=== PATIENT | female | born 1955 | race Caucasian/White ===

== ENCOUNTER 2016-10-28 06:05 | Day surgery (SDC) | payer OTHER ==
[2016-10-28] MEDS ORDERED: fentaNYL 100 MCG/2 ML SDV ONE (06:52)
[2016-10-28] MEDS ORDERED: Midazolam 1 MG/ML 2 ML SDV ONE (06:52)
[2016-10-28] MEDS ORDERED: Propofol 200 MG/20 ML SDV ONE (06:52)
[2016-10-28] MEDS ORDERED: Sodium Chloride 0.9% 1,000 ML IV SCH (07:00)
[2016-10-28 08:47] VITALS: BP 132/91
--- NOTE | 2016-10-28 10:46 | OR ---
DATE OF PROCEDURE: 10/28/2016 PROCEDURE: Colonoscopy. FINDINGS: 1. Small nodular area possibly consistent polyps noted in descending colon, completely removed using cold biopsy forceps. 2. Diverticulosis, mild, mostly limited to sigmoid colon. COMPLICATIONS: None. METALLURGIST HELPER: None. PREOPERATIVE DIAGNOSIS: Screening colonoscopy. POSTOPERATIVE DIAGNOSIS: Screening colonoscopy. INDICATIONS: Risks, benefits, alternatives, and limitations, including, but not limited to infection, bleeding, and perforation were explained to the patient's family and they wished to proceed. PROCEDURE IN DETAIL: The patient was placed in left lateral decubitus position. Digital rectal exam was performed without abnormality. The scope was introduced and advanced atraumatically to the ileocecal valve. The scope was brought back to the ascending, transverse, descending colon, and retroflexed. The aforementioned polyp was identified and completely removed. The diverticulosis would be described as mild and limited to sigmoid colon. No abnormalities on retroflexion. No old or new blood. No evidence of diverticulitis. The patient tolerated the procedure well. Salvatore Vásquez MD /[id number]
== END 2016-10-28 09:07 | disposition home or self-care (01) ==
LOC: JP.SDS 06:05
PROVIDERS: ATTEND Surgery
DX: Z12.11 Encounter for screening for malignant neoplasm of colon (principal); K63.89 Other specified diseases of intestine; K57.30 Diverticulosis of large intestine without perforation or abscess without bleeding; I10 Essential (primary) hypertension; K21.9 Gastro-esophageal reflux disease without esophagitis; Z88.0 Allergy status to penicillin; Z88.8 Allergy status to other drugs, medicaments and biological substances; Z91.09 Other allergy status, other than to drugs and biological substances
CPT/HCPCS: 45380; 88305; J2250; J2704; J3010; J7040